=== PATIENT | male | born 1935 | race Caucasian/White ===

== ENCOUNTER 2020-12-03 12:38 | Observation (INO) ==
[2020-12-03 13:45] LABS: Hemoglobin 9.8 gm/dL (13.5-18.0); Mean Cell Volume 89.4 fl (78-100); Mean Corpuscular Hemoglobin 27.4 pg (27-31); Mean Corpuscular Hgb Conc 30.6 g/dl (32-36); Mean Platelet Volume 10.3 fl (8-11.3); Neutrophil # 8.8 K/mm3 (1.3-6.0); Neutrophil % 90.7 % (42-75.0); Platelet Count 257 K/mm3 (150-450); Red Blood Count 3.58 M/mm3 (4.7-6.0); Red Cell Distribution Width 17.7 % (11.5-14.0); White Blood Count 9.7 K/mm3 (4.0-10.5)
[2020-12-03 13:49] LABS: Urine Bilirubin Negative (NEGATIVE); Urine Blood Negative /ul (NEGATIVE); Urine Ketone Negative (NEGATIVE); Urine Nitrite Negative (NEGATIVE); Urine Protein Negative (NEGATIVE); Urine Specific Gravity 1.015 SP.GR. (1.005-1.030); Urine Urobilinogen Normal (NORMAL); Urine pH 5.5 pH (5.0-7.0)
[2020-12-03 13:54] LABS: Prothrombin Time (Patient) 15.4 Seconds (9.1-10.7)
[2020-12-03 13:55] LABS: INR 1.51 INR (0.92-1.08)
[2020-12-03 14:02] LABS: Urine Appearance Slightly Cloudy (CLEAR); Urine Color Yellow
[2020-12-03 14:03] LABS: Urine Bacteria 1+; Urine Fine Granular Cast 0-5 /LPF; Urine RBC None Seen /hpf (0-5); Urine WBC None Seen /hpf (0-5)
[2020-12-03 14:09] LABS: ALT 39 U/L (19-67); AST 25 U/L (0-48); Albumin * 3.6 gm/dl (3.4-5.0); Alkaline Phosphatase * 84 U/L (50-170); Anion Gap 16.3 mmol/L (6.8-13.8); BUN/Creatinine Ratio 45.4 (9.0-21.6); Bilirubin, Total 0.6 mg/dL (0.0-1.1); Blood Urea Nitrogen 99 mg/dL (6-23); Ca. Corrected For Albumin 8.8 mg/dL (8.4-10.2); Calcium * 8.8 mg/dL (7.9-10.9); Carbon Dioxide 22.5 mmol/L (24-32.6); Chloride 106 mmol/L (97-106); Glucose * 121 mg/dL (70-110); Potassium 2.8 mmol/L (3.4-4.6); Sodium 142 mmol/L (132-142); Total Protein 6.8 gm/dL (6.2-8.2)
[2020-12-03 14:11] LABS: Troponin I 0.018 ng/mL (0.00-0.10)
[2020-12-03] MEDS ORDERED: POTASSIUM CHLORIDE IN WATER 100 ML IV ONE (14:33)
[2020-12-03] MEDS ORDERED: RINGER'S SOLUTION,LACTATED 1,000 ML IV ONE (14:34)
--- NOTE | 2020-12-03 15:46 | ERNOTE ---
Neuro HPI ER Record Date of Service: 12/03/20 Presenting Symptoms: confusion Time Seen by Provider: 12/03/20 13:15 Source: patient Exam Limitations: clinical condition Immunizations: IMMUNIZATION HX Immunizations Up to Date Yes History of Influenza Vaccine Yes Hx Pneumococcal Vaccination Yes Allergies/Adverse Reactions: Allergies Allergy/AdvReac Type Severity Reaction Status Date / Time sodium Allergy Verified 07/21/20 13:33 niacin AdvReac Verified 12/03/20 15:13 Home Medications: HOME MEDICATIONS Digoxin [Lanoxin] 0.125 mg PO DAILY 01/23/13 [Last Taken Unknown] Finasteride [Proscar] 5 mg PO DAILY 01/23/13 [Last Taken Unknown] Omeprazole [Prilosec Generic] 20 mg PO DAILY 01/23/13 [Last Taken Unknown] QUEtiapine FUMARATE [Seroquel] 75 mg PO DAILY 01/23/13 [Last Taken Unknown] amLODIPine BESYLATE [Norvasc] 10 mg PO DAILY 01/23/13 [Last Taken Unknown] Allopurinol [Zyloprim] 300 mg PO DAILY 12/03/20 [Last Taken Unknown] Escitalopram Oxalate 5 mg PO DAILY 12/03/20 [Last Taken Unknown] Furosemide [Lasix] 40 mg PO DAILY 12/03/20 [Last Taken Unknown] Hydrochlorothiazide [Microzide] 12.5 mg PO DAILY 12/03/20 [Last Taken Unknown] Insulin Aspart [Novolog] 12/03/20 [Last Taken Unknown] Insulin Degludec [Tresiba Flextouch U-100] 50 unit SQ HS 12/03/20 [Last Taken Unknown] LORazepam [Ativan] 0.5 mg PO TID PRN 12/03/20 [Last Taken Unknown] Lisinopril 5 mg PO DAILY 12/03/20 [Last Taken Unknown] Melatonin 3 mg PO HS 12/03/20 [Last Taken Unknown] Metoprolol Succinate [Kapspargo Sprinkle] 25 mg PO DAILY 12/03/20 [Last Taken Unknown] Oxycodone HCl 5 mg PO TID 12/03/20 [Last Taken Unknown] Potassium Chloride 10 meq PO DAILY 12/03/20 [Last Taken Unknown] Rivaroxaban [Xarelto] 15 mg PO DAILY 12/03/20 [Last Taken Unknown] Sennosides [Senna] 3 tab PO DAILY 12/03/20 [Last Taken Unknown] predniSONE [Prednisone] 10 mg PO DAILY 12/03/20 [Last Taken Unknown] - History of Present Illness Narrative: Patient presents to the ED from [place]. By report altered, more confused. Not sure of onset. He is not sure what is going on, he will answer questions but seems confused significantly at times. Denies pain at this time. History complicated by patient condition. By nursing report possible recent fall. Onset: cannot confirm onset - Character of Deficits New weakness: Present: general (diffuse) Additional Deficits: Absent: vision problems Baseline Gait: Present: other - apparently has not been mentating normally for 6 months per family but this is a departure from baseline for him by family report Associated Symptoms: Reports: altered mental status. Denies: fever/chills, headache, decreased responsiveness Prior Treament: Denies: similar symptoms before Review of Systems - Narrative Narrative: unable to obtain ROS in entirety d/t patient condition/altered mental status Medical History (Last Reviewed 12/03/20 @ 16:09 by Brian Valentine MD) Anticoagulant long-term use Atrial fibrillation Bilateral bunions Bilateral lower extremity edema Diabetes mellitus, type II Difficulty walking Dry skin Hammer toes, bilateral Hyperpigmentation of skin Onychomycosis Thinning of skin Toe pain, bilateral Surgical History: Surgical History (Last Reviewed 12/03/20 @ 16:09 by Brian Valentine MD) H/O foot surgery H/O knee surgery History of cholecystectomy Previous back surgery Family History: Family History (Last Reviewed 12/03/20 @ 16:09 by Brian Valentine MD) Other No pertinent family history Social History: (Last Reviewed 12/03/20 @ 16:09 by Brian Valentine MD) Tobacco: Smoking Status: Former smoker Alcohol: alcohol intake: former Substance Use: substance use type: does not use Physical Exam - Physical Exam General Appearance: Present: alert, other - chronically ill appearing Head Exam: Present: normal inspection, no evidence of injury Eye Exam: Normal inspection: bilateral, PERRL: bilateral Ears, Nose, Throat: Present: dry mucous membranes, other - clinically dehydrated Neck: Present: normal inspection Respiratory: Present: no respiratory distress, normal breath sounds, no accessory muscle use, lungs clear Cardiovascular/Chest: Present: regular rate, rhythm, normal peripheral pulses Gastrointestinal/Abdominal: Present: normal bowel sounds, nontender, nondistended, soft Back Exam: Absent: CVA tenderness (R), CVA tenderness (L) Extremity Exam: Present: other - Left low leg bandaged, there is some mild skin redness but no warmth and nothing that I would consider cellulitis. No suggestion of DVT. Neurological Exam: Present: alert, other - generalize weakness noted, no acute unilateral focal weakness. Seems confused. Skin Exam: Present: normal color, warm/dry, other - left low leg as noted above Progress - Results and Orders Patient's Lab Results:: I have reviewed the patient's lab results. - Vital Signs Patient's Vital Signs:: I have reviewed the patient's vital signs. Vital Signs: Vital Signs 12/03/20 12:45 12/03/20 13:55 12/03/20 14:49 Temperature 36.0 C Pulse Rate 70 51 L 66 Respiratory Rate 12 12 16 Blood Pressure 85/48 L 93/44 128/61 O2 Sat by Pulse Oximetry 98 95 97 12/03/20 15:23 Temperature Pulse Rate 48 L Respiratory Rate 13 Blood Pressure 85/42 L O2 Sat by Pulse Oximetry 97 - EKG EKG #1 EKG read: Interp. by me EKG Comments: Sinus bradycardia rate 55. Non-specific ST/T wave changes, no STEMI - X-Ray X-Ray #1 X-Ray: chest Interpretation: Interp. by me X-ray Comments: I personally reviewed CXR image as well as official radiology report - CT/Ultrasound CT/Ultrasound Narrative: I reviewed official radiology head CT report - Progress/Reassessment Chief Complaint: Altered Mental Status Progress Note-Subjective: 12/03/20 16:12 Patient given IV fluids and IV potassium. Given his confusion and lab abnormalities case management contacted, he qualifies for observation in the hospital. Patient seems agreeable to this. He is a DNR but was agreeable to this. I discussed the case with Dr Martinez who will admit obs. Nursing spoke with family to discuss the case. Departure Clinical Impression: Confusion, GALO (acute kidney injury), Hypokalemia, Altered mental status, Dehydration - Departure Disposition: Still a patient Condition: Fair Referrals: Logan Frank MD [Primary Care Provider] -
[2020-12-03] MEDS ORDERED: LORazepam 0.5 MG TABLET PO PRN (17:38)
[2020-12-03] MEDS ORDERED: POTASSIUM CHLORIDE 20 MEQ/15 ML UDC PO ONE (17:45)
--- NOTE | 2020-12-03 17:49 | HP ---
Chief Complaint - Chief Complaint Date of Service: 12/03/20 Time of Service: 17:49 Chief Complaint: AMS, hypokalemia History of Present Illness: 85-year-old male was brought into the residential due to some confusion. Patient is pleasantly confused, alert and oriented x1. He will answer questions but is responses are not appropriate most of the time. He states that he does not have any pain and feels well. In the ER he was found to have a potassium of 2.8 as well as an elevated creatinine at 2.18. His baseline creatinine is around 1.5-1.6 so this is mildly elevated. Likely due to dehydration. The rest of his vital signs been stable aside from a mildly bradycardic picture in the upper 50s. Most of his heart rates are in the 60s and 70s. Head CT was done in the ER which showed no acute intracranial process. His chest x-ray was also showed no acute cardiopulmonary process. Patient was placed in drops due to hypokalemia and acute kidney injury. Per family patient has been declining from mentation standpoint over the last 6 months. Medical History (Last Reviewed 12/03/20 @ 16:09 by Brian Valentine MD) Anticoagulant long-term use Atrial fibrillation Bilateral bunions Bilateral lower extremity edema Diabetes mellitus, type II Difficulty walking Dry skin Hammer toes, bilateral Hyperpigmentation of skin Onychomycosis Thinning of skin Toe pain, bilateral Surgical History: Surgical History (Last Reviewed 12/03/20 @ 16:09 by Brian Valentine MD) H/O foot surgery H/O knee surgery History of cholecystectomy Previous back surgery Family History: Family History (Last Reviewed 12/03/20 @ 16:09 by Brian Valentine MD) Other No pertinent family history Social History: (Last Reviewed 12/03/20 @ 16:09 by Brian Valentine MD) Tobacco: Smoking Status: Former smoker Alcohol: alcohol intake: former Substance Use: substance use type: does not use Review Of Systems (GEN) - Review of Systems Additional Comments: Patient denies pain but otherwise is a little altered and so his responses are inappropriate and so no other review of systems obtained Immunizations: IMMUNIZATION HX Immunizations Up to Date Yes History of Influenza Vaccine Yes Hx Pneumococcal Vaccination Yes Allergies/Adverse Reactions: Allergies Allergy/AdvReac Type Severity Reaction Status Date / Time sodium Allergy Verified 12/04/20 05:57 niacin AdvReac Verified 12/03/20 15:13 Home Medications: HOME MEDICATIONS Finasteride [Proscar] 5 mg PO DAILY 01/23/13 [Last Taken Unknown] Omeprazole [Prilosec Generic] 20 mg PO DAILY 01/23/13 [Last Taken Unknown] QUEtiapine FUMARATE [Seroquel] 75 mg PO DAILY 01/23/13 [Last Taken Unknown] amLODIPine BESYLATE [Norvasc] 5 mg PO DAILY 01/23/13 [Last Taken Unknown] Allopurinol [Zyloprim] 300 mg PO DAILY 12/03/20 [Last Taken Unknown] Atorvastatin Calcium 1 tab PO HS 12/03/20 [Last Taken Unknown] Atorvastatin Calcium 80 mg PO HS 12/03/20 [Last Taken Unknown] Doxazosin Mesylate [Cardura] 1 tab PO HS 12/03/20 [Last Taken Unknown] Escitalopram Oxalate 5 mg PO DAILY 12/03/20 [Last Taken Unknown] Furosemide [Lasix] 40 mg PO DAILY 12/03/20 [Last Taken Unknown] Hydrochlorothiazide [Microzide] 12.5 mg PO DAILY 12/03/20 [Last Taken Unknown] Insulin Aspart [Novolog] 12/03/20 [Last Taken Unknown] Insulin Degludec [Tresiba Flextouch U-100] 50 unit SQ HS 12/03/20 [Last Taken Unknown] LORazepam [Ativan] 0.5 mg PO TID PRN 12/03/20 [Last Taken Unknown] Lisinopril 5 mg PO DAILY 12/03/20 [Last Taken Unknown] Melatonin 5 mg PO HS 12/03/20 [Last Taken Unknown] Metoprolol Succinate [Kapspargo Sprinkle] 25 mg PO DAILY 12/03/20 [Last Taken Unknown] Neomycin/Bacitracin/Polymyxinb [Triple Antibiotic Ointment] 1 ea TP 12/03/20 [L ast Taken Unknown] Oxycodone HCl 5 mg PO TID 12/03/20 [Last Taken Unknown] Potassium Chloride 10 meq PO DAILY 12/03/20 [Last Taken Unknown] Rivaroxaban [Xarelto] 15 mg PO DAILY 12/03/20 [Last Taken Unknown] Sennosides [Senna] 3 tab PO DAILY 12/03/20 [Last Taken Unknown] Vitamin B-1 100 mg PO DAILY 12/03/20 [Last Taken Unknown] predniSONE [Prednisone] 10 mg PO DAILY 12/03/20 [Last Taken Unknown] Exam - Exam Vital Signs: Vital Signs - Last Taken Temp 36.1 C 12/03/20 16:48 Pulse 71 12/03/20 16:48 Resp 15 12/03/20 16:48 BP 112/56 12/03/20 16:48 Pulse Ox 96 12/03/20 16:48 Constitutional: Present: Alert, Cooperative, Elderly. Absent: Oriented x3 - X1, patient knows his name ENT Exam: Present: hard of hearing Eye Exam: bilateral eye: normal inspection, EOMI Neck: Present: non-tender, supple Back Exam: Present: normal inspection, no CVA tenderness Respiratory: Present: lungs clear, normal breath sounds, no respiratory distress Cardiovascular/Chest: Present: regular rate, rhythm, no murmur Abdomen: Present: soft, nontender, nondistended Skin Exam: Present: normal color, warm/dry Appearance: Present: impaired insight Eye contact: Present: cooperative, good eye contact Diagnostic Studies: Abnormal Lab Results 12/03/20 12/03/20 12/03/20 Range/Units 13:39 13:40 13:40 RBC 3.58 L (4.7-6.0) M/mm3 Hgb 9.8 L (13.5-18.0) gm/dL Hct 32.0 L (42.0-52.0) % MCHC 30.6 L (32-36) g/dl RDW 17.7 H (11.5-14.0) % Immature Gran # (Auto) 0.04 H (0.000-0.0310) K/mm3 Neutrophils % 90.7 H (42-75.0) % Lymphocytes % 4.1 L (20-51) % Neutrophils # 8.8 H (1.3-6.0) K/mm3 Lymphocytes # 0.40 L (1.5-3.5) k/mm3 PT 15.4 H (9.1-10.7) Seconds INR (Anticoag Therapy) 1.51 H (0.92-1.08) INR Potassium (3.4-4.6) mmol/L Carbon Dioxide (24-32.6) mmol/L Anion Gap (6.8-13.8) mmol/L BUN (6-23) mg/dL Creatinine (0.4-1.4) mg/dL Est GFR (Non-Af Amer) (60-130) mL/min BUN/Creatinine Ratio (9.0-21.6) Random Glucose (70-110) mg/dL Urine Bacteria 1+ H (NONE) Fine Granular Casts 0-5 H (NONE) /LPF Digoxin (0.5-2.0) ng/mL 12/03/20 Range/Units 13:40 RBC (4.7-6.0) M/mm3 Hgb (13.5-18.0) gm/dL Hct (42.0-52.0) % MCHC (32-36) g/dl RDW (11.5-14.0) % Immature Gran # (Auto) (0.000-0.0310) K/mm3 Neutrophils % (42-75.0) % Lymphocytes % (20-51) % Neutrophils # (1.3-6.0) K/mm3 Lymphocytes # (1.5-3.5) k/mm3 PT (9.1-10.7) Seconds INR (Anticoag Therapy) (0.92-1.08) INR Potassium 2.8 L (3.4-4.6) mmol/L Carbon Dioxide 22.5 L (24-32.6) mmol/L Anion Gap 16.3 H (6.8-13.8) mmol/L BUN 99 H D (6-23) mg/dL Creatinine 2.18 H D (0.4-1.4) mg/dL Est GFR (Non-Af Amer) 31 L D (60-130) mL/min BUN/Creatinine Ratio 45.4 H (9.0-21.6) Random Glucose 121 H (70-110) mg/dL Urine Bacteria (NONE) Fine Granular Casts (NONE) /LPF Digoxin Less than 0.1 L (0.5-2.0) ng/mL Laboratory Results WBC 9.7 K/mm3 (4.0-10.5) 12/03/20 13:40 RBC 3.58 M/mm3 (4.7-6.0) L 12/03/20 13:40 Hgb 9.8 gm/dL (13.5-18.0) L 12/03/20 13:40 Hct 32.0 % (42.0-52.0) L 12/03/20 13:40 MCV 89.4 fl (78-100) 12/03/20 13:40 MCH 27.4 pg (27-31) 12/03/20 13:40 MCHC 30.6 g/dl (32-36) L 12/03/20 13:40 RDW 17.7 % (11.5-14.0) H 12/03/20 13:40 Plt Count 257 K/mm3 (150-450) 12/03/20 13:40 MPV 10.3 fl (8-11.3) 12/03/20 13:40 Immature Gran % (Auto) 0.40 % (0.001-0.429) 12/03/20 13:40 Immature Gran # (Auto) 0.04 K/mm3 (0.000-0.0310) H 12/03/20 13:40 Neutrophils % 90.7 % (42-75.0) H 12/03/20 13:40 Lymphocytes % 4.1 % (20-51) L 12/03/20 13:40 Monocytes % 4.3 % (0.0-9) 12/03/20 13:40 Eosinophils % 0.3 % (0.0-3.0) 12/03/20 13:40 Basophils % 0.2 % (0.0-1.0) 12/03/20 13:40 Nucleated RBC % 0.0 k/mm3 (0-1) 12/03/20 13:40 Neutrophils # 8.8 K/mm3 (1.3-6.0) H 12/03/20 13:40 Lymphocytes # 0.40 k/mm3 (1.5-3.5) L 12/03/20 13:40 Monocytes # 0.4 k/mm3 (0.0-1.0) 12/03/20 13:40 Eosinophils # 0.0 k/mm3 (0.0-0.7) 12/03/20 13:40 Absolute Basophils 0.0 k/mm3 (0.0-0.1) 12/03/20 13:40 PT 15.4 Seconds (9.1-10.7) H 12/03/20 13:40 INR (Anticoag Therapy) 1.51 INR (0.92-1.08) H 12/03/20 13:40 Sodium 142 mmol/L (132-142) 12/03/20 13:40 Plasma Sodium 142 mmol/L (130-142) 12/03/20 13:40 Potassium 2.8 mmol/L (3.4-4.6) L 12/03/20 13:40 Chloride 106 mmol/L (97-106) 12/03/20 13:40 Carbon Dioxide 22.5 mmol/L (24-32.6) L 12/03/20 13:40 Anion Gap 16.3 mmol/L (6.8-13.8) H 12/03/20 13:40 BUN 99 mg/dL (6-23) H D 12/03/20 13:40 Creatinine 2.18 mg/dL (0.4-1.4) H D 12/03/20 13:40 Est GFR (Non-Af Amer) 31 mL/min (60-130) L D 12/03/20 13:40 BUN/Creatinine Ratio 45.4 (9.0-21.6) H 12/03/20 13:40 Random Glucose 121 mg/dL (70-110) H 12/03/20 13:40 Lactic Acid, Venous 1.0 mmol/L (0.4-2.0) 12/03/20 13:40 Calcium 8.8 mg/dL (7.9-10.9) 12/03/20 13:40 Calcium Adj for Albumin 8.8 mg/dL (8.4-10.2) 12/03/20 13:40 Total Bilirubin 0.6 mg/dL (0.0-1.1) 12/03/20 13:40 AST 25 U/L (0-48) 12/03/20 13:40 ALT 39 U/L (19-67) 12/03/20 13:40 Alkaline Phosphatase 84 U/L (50-170) 12/03/20 13:40 Troponin I 0.018 ng/mL (0.00-0.10) 12/03/20 13:40 Total Protein 6.8 gm/dL (6.2-8.2) 12/03/20 13:40 Albumin 3.6 gm/dl (3.4-5.0) 12/03/20 13:40 Urine Color Yellow 12/03/20 13:39 Urine Appearance Slightly cloudy (CLEAR) 12/03/20 13:39 Urine pH 5.5 pH (5.0-7.0) 12/03/20 13:39 Ur Specific [place] 1.015 SP.GR. (1.005-1.030) 12/03/20 13:39 Urine Protein Negative mg/dL (NEGATIVE) 12/03/20 13:39 Urine Glucose (UA) Negative mg/dL (NEGATIVE) 12/03/20 13:39 Urine Ketones Negative mg/dL (NEGATIVE) 12/03/20 13:39 Urine Blood Negative /ul (NEGATIVE) 12/03/20 13:39 Urine Nitrate Negative (NEGATIVE) 12/03/20 13:39 Urine Bilirubin Negative mg/dl (NEGATIVE) 12/03/20 13:39 Urine Urobilinogen Normal EU/dl (NORMAL) 12/03/20 13:39 Ur Leukocyte Esterase Negative /ul (NEGATIVE) 12/03/20 13:39 Urine RBC None seen /hpf (0-5) 12/03/20 13:39 Urine WBC None seen /hpf (0-5) 12/03/20 13:39 Ur Epithelial Cells 0-5 /hpf (0-5) 12/03/20 13:39 Urine Bacteria 1+ (NONE) H 12/03/20 13:39 Fine Granular Casts 0-5 /LPF (NONE) H 12/03/20 13:39 Urine Culture Comments No culture indicated 12/03/20 13:39 Digoxin Less than 0.1 ng/mL (0.5-2.0) L 12/03/20 13:40 SARS-CoV-2 (PCR) Not detected (NotDetected) 12/03/20 14:50 Assessment/Plan - Narrative Narrative: Patient admitted under observation for gentle fluid resuscitation and potassium replacement therapy. Will repeat labs in the morning. Regular diet ordered. He is diabetic but appears to be well controlled with his home regimen which we will continue. His vital signs are stable and overall he is pleasantly confused but not in any acute distress. If his potassium returned to normal and we see improvement in his kidney function and he can be discharged home tomorrow and will follow with his PCP in regards to these issues. Nurse will call with any questions or concerns. - Assessment/Plan (1) GALO (acute kidney injury) Problem: Acute (2) Hypokalemia Problem: Acute (3) Altered mental status Problem: Acute (4) Dehydration Problem: Acute
[2020-12-03 18:35] LABS: Anion Gap 14.7 mmol/L (6.8-13.8); BUN/Creatinine Ratio 45.1 (9.0-21.6); Calcium * 9.1 mg/dL (7.9-10.9); Carbon Dioxide 23.7 mmol/L (24-32.6); Estimated Creat Clear 26.6; Potassium 3.4 mmol/L (3.4-4.6)
[2020-12-03] MEDS: ROSUVASTATIN CALCIUM 20 MG TABLET PO SCH (20:14)
[2020-12-03] MEDS: DOXAZOSIN MESYLATE 2 MG TABLET PO SCH (20:14)
[2020-12-03] MEDS: INSULIN GLARGINE,HUM.REC.ANLOG 100 UNITS/ML VIAL SC SCH (20:15)
[2020-12-03] MEDS: MELATONIN 3,000 MCG TABLET PO SCH (20:15)
[2020-12-04] MEDS: FUROSEMIDE 40 MG TABLET PO SCH (08:17)
[2020-12-04] MEDS: PANTOPRAZOLE SODIUM 20 MG TABLET.DR PO SCH (08:17)
[2020-12-04] MEDS: POTASSIUM CHLORIDE 10 MEQ TABLET.SA PO SCH (08:17)
[2020-12-04] MEDS: FINASTERIDE 5 MG TABLET PO SCH (08:18)
[2020-12-04] MEDS: predniSONE 10 MG TABLET PO SCH (08:18)
[2020-12-04] MEDS: ESCITALOPRAM OXALATE 5 MG TABLET PO SCH (08:18)
[2020-12-04] MEDS: HYDROCHLOROTHIAZIDE 12.5 MG CAPSULE PO SCH (08:18)
[2020-12-04] MEDS: QUEtiapine FUMARATE 25 MG TABLET PO SCH (08:19)
[2020-12-04] MEDS: LISINOPRIL 5 MG TABLET PO SCH (08:19)
[2020-12-04] MEDS: RIVAROXABAN 15 MG TABLET PO SCH (08:19)
[2020-12-04] MEDS: METOPROLOL SUCCINATE 25 MG TABLET.SA PO SCH (08:19)
[2020-12-04] MEDS: SENNOSIDES 8.6 MG TABLET PO SCH (08:19)
[2020-12-04] MEDS: ALLOPURINOL 300 MG TABLET PO SCH (08:20)
[2020-12-04] MEDS ORDERED: amLODIPine BESYLATE 10 MG TABLET PO SCH (09:00)
[2020-12-04 13:04] LABS: Anion Gap 15.1 mmol/L (6.8-13.8); BUN/Creatinine Ratio 48.6 (9.0-21.6); Carbon Dioxide 25.1 mmol/L (24-32.6); Potassium 3.2 mmol/L (3.4-4.6)
[2020-12-04] MEDS: ROSUVASTATIN CALCIUM 20 MG TABLET PO SCH (20:01)
[2020-12-04] MEDS: DOXAZOSIN MESYLATE 2 MG TABLET PO SCH (20:02)
[2020-12-04] MEDS: MELATONIN 3,000 MCG TABLET PO SCH (20:03)
[2020-12-04] MEDS: INSULIN GLARGINE,HUM.REC.ANLOG 100 UNITS/ML VIAL SC SCH (20:03)
--- NOTE | 2020-12-04 20:39 | PN ---
Subjective - Date and Time Seen Date: 12/04/20 Time: 20:37 Subjective Narrative: Patient still pleasantly confused but feeling much better today. Potassium returned to normal, kidney function close to baseline. Patient was said to be discharged but we cannot give him a ride back to his [facility] this afternoon as we are waiting for C. difficile results to return prior to discharge. Patient has had a couple episodes of loose stool but had no risk factors for C. difficile infection but wanted to rule it out just to be safe. Vital signs been stable, patient eating well. No concerns at this time. Objective - Review of Systems Generalized/Overall Review: Reports: No Symptoms Reported Respiratory: Reports: No Symptoms Reported Cardiac: Reports: No Symptoms Reported Abdominal: Reports: No Symptoms Reported - Vitals Vitals: Last Vital Signs Temp 36.6 C 12/04/20 17:50 Pulse 92 12/04/20 17:50 Resp 18 12/04/20 17:50 BP 130/70 12/04/20 17:50 Pulse Ox 93 12/04/20 17:50 - Abnormal Lab Findings Abnormal Lab Findings: Abnormal Lab Results 12/04/20 Range/Units 12:44 Plasma Sodium 143 H (130-142) mmol/L Potassium 3.2 L (3.4-4.6) mmol/L Anion Gap 15.1 H (6.8-13.8) mmol/L BUN 86 H (6-23) mg/dL Creatinine 1.77 H (0.4-1.4) mg/dL Est GFR (Non-Af Amer) 39 L (60-130) mL/min BUN/Creatinine Ratio 48.6 H (9.0-21.6) Random Glucose 150 H (70-110) mg/dL - Exam Constitutional: Present: Alert, No distress. Absent: Oriented x3 - X1 Respiratory: Present: lungs clear, normal breath sounds Cardiovascular/Chest: Present: regular rate, rhythm, no murmur Abdomen: Present: Normal bowel sounds, soft, nontender Appearance: Present: impaired insight Assessment/Plan Plan Narrative: Patient stable, no concerns with him at this time. Will be discharged early tomorrow morning once we have a ride arranged for him to return [facility]. Continue chronic medications. Nurse to call questions or concerns. - Problems/Diagnosis (1) GALO (acute kidney injury) Problem: Acute (2) Hypokalemia Problem: Acute (3) Altered mental status Problem: Acute (4) Dehydration Problem: Acute
[2020-12-05] MEDS: PANTOPRAZOLE SODIUM 20 MG TABLET.DR PO SCH (06:43)
[2020-12-05] MEDS: METOPROLOL SUCCINATE 25 MG TABLET.SA PO SCH ×2 (08:28→09:02)
[2020-12-05] MEDS: QUEtiapine FUMARATE 25 MG TABLET PO SCH (08:28)
[2020-12-05] MEDS: ESCITALOPRAM OXALATE 5 MG TABLET PO SCH (08:28)
[2020-12-05] MEDS: POTASSIUM CHLORIDE 10 MEQ TABLET.SA PO SCH (08:28)
[2020-12-05] MEDS: HYDROCHLOROTHIAZIDE 12.5 MG CAPSULE PO SCH ×2 (08:28→09:01)
[2020-12-05] MEDS: ALLOPURINOL 300 MG TABLET PO SCH (08:30)
[2020-12-05] MEDS: RIVAROXABAN 15 MG TABLET PO SCH (08:30)
[2020-12-05] MEDS: FINASTERIDE 5 MG TABLET PO SCH (08:31)
[2020-12-05] MEDS: FUROSEMIDE 40 MG TABLET PO SCH (09:00)
[2020-12-05] MEDS ORDERED: amLODIPine BESYLATE 5 MG TABLET PO SCH (09:00)
[2020-12-05] MEDS: SENNOSIDES 8.6 MG TABLET PO SCH (09:01)
[2020-12-05] MEDS: LISINOPRIL 5 MG TABLET PO SCH (09:02)
[2020-12-05] MEDS: predniSONE 10 MG TABLET PO SCH (09:08)
--- NOTE | 2020-12-05 11:25 | DS ---
(1) GALO (acute kidney injury) Problem: Acute (2) Hypokalemia Problem: Acute (3) Altered mental status Problem: Acute (4) Dehydration Problem: Acute Date of Discharge:: 12/05/20 Hospital Course: Johnnie is feeling well today. Much more oriented. Vital signs are stable though his blood pressures were a little low this morning and so his medications were held. There will be some adjustments made and parameters set with his chronic medications prior to being discharged but no new medications will be added. Patient's potassium is stabilized. Patient's kidney function is close to baseline. No new labs drawn today for patient comfort. Patient tolerating p.o. Patient is ready be discharged home. Advised him to follow with his PCP in the next week or so either by video visit or in the half-way. Procedures Performed: none Results and Findings: Lab Pending Results 12/03/20 13:39: Urine Color Yellow, Urine Appearance Slightly cloudy, Urine pH 5.5, Ur Specific [place] 1.015, Urine Protein Negative, Urine Glucose (UA) Negative, Urine Ketones Negative, Urine Blood Negative, Urine Nitrate Negative, Urine Bilirubin Negative, Urine Urobilinogen Normal, Ur Leukocyte Esterase Negative, Urine RBC None seen, Urine WBC None seen, Ur Epithelial Cells 0-5, Urine Bacteria 1+ H, Fine Granular Casts 0-5 H, Urine Culture Comments No culture indicated 12/03/20 13:40: WBC 9.7, RBC 3.58 L, Hgb 9.8 L, Hct 32.0 L, MCV 89.4, MCH 27.4, MCHC 30.6 L, RDW 17.7 H, Plt Count 257, MPV 10.3, Immature Gran % (Auto) 0.40, Immature Gran # (Auto) 0.04 H, Neutrophils % 90.7 H, Lymphocytes % 4.1 L, Monocytes % 4.3, Eosinophils % 0.3, Basophils % 0.2, Nucleated RBC % 0.0, Ne utrophils # 8.8 H, Lymphocytes # 0.40 L, Monocytes # 0.4, Eosinophils # 0.0, Absolute Basophils 0.0 12/03/20 13:40: PT 15.4 H, INR (Anticoag Therapy) 1.51 H 12/03/20 13:40: Sodium 142, Plasma Sodium 142, Potassium 2.8 L, Chloride 106, Carbon Dioxide 22.5 L, Anion Gap 16.3 H, BUN 99 H D, Creatinine 2.18 H D, Est GFR (Non-Af Amer) 31 L D, BUN/Creatinine Ratio 45.4 H, Random Glucose 121 H, Calcium 8.8, Calcium Adj for Albumin 8.8, Total Bilirubin 0.6, AST 25, ALT 39, Alkaline Phosphatase 84, Troponin I 0.018, Total Protein 6.8, Albumin 3.6, Digoxin Less than 0.1 L 12/03/20 13:40: Lactic Acid, Venous 1.0 12/03/20 14:50: SARS-CoV-2 (PCR) Not detected 12/03/20 18:20: Sodium 141, Plasma Sodium 141, Potassium 3.4 D, Chloride 106, Carbon Dioxide 23.7 L, Anion Gap 14.7 H, BUN 93 H, Creatinine 2.06 H, Est GFR (Non-Af Amer) 33 L, BUN/Creatinine Ratio 45.1 H, Random Glucose 118 H, Calcium 9.1 12/04/20 12:44: Sodium 142, Plasma Sodium 143 H, Potassium 3.2 L, Chloride 105, Carbon Dioxide 25.1, Anion Gap 15.1 H, BUN 86 H, Creatinine 1.77 H, Est GFR (Non-Af Amer) 39 L, BUN/Creatinine Ratio 48.6 H, Random Glucose 150 H, Calcium 9.0 12/04/20 13:50: Stl C.difficile Tox A&B Negative Discharge Location: [facility] Disposition: Home self-care Condition: Fair Discharge Activity: Activity as tolerated Discharge Diet: General/regular food Referrals: Logan Frank MD [Primary Care Provider] - One Week Prescriptions (Any new or edited meds): Metoprolol Succinate [Kapspargo Sprinkle] 12.5 mg PO DAILY #30 Furosemide [Lasix] 20 mg PO DAILY #30 Sennosides [Senna] 2 tab PO prn #60 Complete Home Medications List: Complete Home Medication List: Finasteride [Proscar] 5 mg PO DAILY 01/23/13 Omeprazole [Prilosec] 20 mg PO DAILY 01/23/13 QUEtiapine FUMARATE [Seroquel] 75 mg PO DAILY 01/23/13 amLODIPine BESYLATE [Norvasc] 5 mg PO DAILY 01/23/13 Allopurinol [Zyloprim] 300 mg PO DAILY 12/03/20 Atorvastatin Calcium 1 tab PO HS 12/03/20 Atorvastatin Calcium 80 mg PO HS 12/03/20 Doxazosin Mesylate [Cardura] 1 tab PO HS 12/03/20 Escitalopram Oxalate 5 mg PO DAILY 12/03/20 Hydrochlorothiazide [Microzide] 12.5 mg PO DAILY 12/03/20 Insulin Aspart [Novolog] 12/03/20 Insulin Degludec [Tresiba Flextouch U-100] 50 unit SQ HS 12/03/20 LORazepam [Ativan] 0.5 mg PO TID PRN 12/03/20 Lisinopril 5 mg PO DAILY 12/03/20 Melatonin 5 mg PO HS 12/03/20 Neomycin/Bacitracin/Polymyxinb [Triple Antibiotic Ointment] 1 ea TP 12/03/20 Oxycodone HCl 5 mg PO TID 12/03/20 Potassium Chloride 10 meq PO DAILY 12/03/20 Rivaroxaban [Xarelto] 15 mg PO DAILY 12/03/20 Vitamin B-1 100 mg PO DAILY 12/03/20 predniSONE [Prednisone] 10 mg PO DAILY 12/03/20 Furosemide [Lasix] 20 mg PO DAILY #30 12/05/20 Metoprolol Succinate [Kapspargo Sprinkle] 12.5 mg PO DAILY #30 12/05/20 Sennosides [Senna] 2 tab PO prn #60 12/05/20 Forms: Patient Portal Registration
[2020-12-05 11:34] VITALS: BP 114/65
== END 2020-12-05 12:50 ==
LOC: MS 12:38 → ER 12:38 → MS 16:50
PROVIDERS: ADMIT Family Medicine; ATTEND Family Medicine